=== PATIENT | male | born 1965 | race Caucasian/White ===

== ENCOUNTER 2018-09-01 14:42 | Emergency (ER) | payer OTHER ==
[~2018-09-01] VITALS: Ht 182.9 cm; Wt 106.8 kg
[2018-09-01] MEDS ORDERED: MAPA325T2 PO (14:46)
[2018-09-01] MEDS ORDERED: IBUP40TA PO (14:46)
[2018-09-01 15:54] LABS: INFLUENZA A AMPLIFICATION POSITIVE (NEGATIVE); INFLUENZA B AMPLIFICATION NEGATIVE (NEGATIVE)
[2018-09-01] MEDS ORDERED: NAPR-50 PO (16:57)
[2018-09-01] MEDS ORDERED: MUCI1TAB18 PO (17:00)
[2018-09-01] MEDS ORDERED: FLON1SPR NARES (17:00)
[2018-09-01] MEDS ORDERED: CETI10TA PO (17:00)
[2018-09-01] MEDS ORDERED: NETI1KIT (17:00)
[2018-09-01 17:13] VITALS: BP 149/91
[2018-09-01 18:09] LABS: BLOOD UREA NITROGEN 13 MG/DL (7-18); CALCIUM LEVEL 8.2 MG/DL (8.5-10.1); CARBON DIOXIDE LEVEL 28 MEQ/L (21-32); CHLORIDE LEVEL 107 MEQ/L (98-107); CREATININE FOR GFR 0.77 MG/DL (0.70-1.30); GLOMERULAR FILTRATION RATE > 60.0 (>56); GLUCOSE, FASTING 89 MG/DL (70-100); POTASSIUM SERUM 4.3 MEQ/L (3.5-5.1); SODIUM LEVEL 140 MEQ/L (136-145)
--- NOTE | 2018-09-02 06:37 | REP ---
UNILATERAL RIGHT RIBS, PA CHEST, FIVE VIEWS: HISTORY: Rib pain. The lungs are clear. The heart is normal in size. The pulmonary vasculature is normal in appearance. The bony structure is intact. IMPRESSION: No acute disease. Electronically Signed by Hakeem Ceballos MD 09/02/2018 07:26 A
== END 2018-09-01 17:16 | disposition home or self-care (01) ==
LOC: M ED 14:42
DX: J09.X2 Influenza due to identified novel influenza A virus with other respiratory manifestations (principal); R03.0 Elevated blood-pressure reading, without diagnosis of hypertension; Z79.899 Other long term (current) drug therapy; Z87.891 Personal history of nicotine dependence

== ENCOUNTER → 2020-10-26 | Outpatient (CLI) | payer OTHER ==
[~2020-10-26] MED LIST: CETI10TA PO; FLON1SPR NARES; IBUP1TAB5 PO; MAPA325T8 PO; MUCI1TAB18 PO; NAPR-837 PO; NETI1KIT
--- NOTE | 2020-10-26 10:46 | REP ---
INDICATION: PAIN IN RIGHT KNEE. COMPARISON: None. TECHNIQUE: Multiple sequences obtained in the axial, coronal and sagittal planes. FINDINGS: Menisci: Intact, no tear. Cruciate ligaments: Intact. Collateral ligaments: Intact. Extensor mechanism/patellar retinacula: Intact. Cartilage: There is a 1 cm cartilaginous defect of the medial patellar facet extending close to the osseous surface. 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 There is moderate diffuse chondromalacia of the medial joint compartment. Bone marrow: Diffuse marrow edema is seen in the medial femoral condyle consistent with a bone bruise. There is mild marrow edema medial patellar facet. Joint fluid: There is mild to moderate joint effusion. Popliteal region: No cyst. IMPRESSION: No evidence of internal derangement. Diffuse bone bruise medial femoral condyle. Mild to moderate joint effusion. There is a 1 cm cartilaginous defect of the medial patellar facet extending close to the osseous surface, with mild associated marrow edema. 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 <Electronically signed by Jose Miguel Tyler > 10/26/20 1049
== END ==
LOC: M PLARAD 08:53
PROVIDERS: ATTEND Orthopaedic Surgery
DX: M25.561 Pain in right knee (principal)

== ENCOUNTER 2022-06-08 07:01 | Day surgery (SDC) | payer OTHER ==
[~2022-06-08] VITALS: Ht 180.3 cm; Wt 124.7 kg
[~2022-06-08 07:01] MED LIST changes: +ALBU2.5V10 INH; +AMPICILLIN SOD/SULBACTAM SOD 3 GM in D5W MINI-BAG PLUS 100 ML IV ONE; +CETI-24 PO; +FURO20TA2 PO; +LOSA25TA13 PO; +SPIR-10 PO
[2022-06-08] MEDS ORDERED: BUPIVACAINE LIPOSOME/PF 1.3% 20ML VIAL (13.3MG/ML)(EXPAREL) As Ordered ONE (07:14)
[2022-06-08] MEDS ORDERED: LIDOCAINE 2% W/ EPINEPHRINE 1.7 ML DENTAL INJ As Ordered ONE ×2 (07:14→07:16)
[2022-06-08] MEDS ORDERED: LR 1,000 ML IV SCH ×2 (07:35→10:40)
[2022-06-08] MEDS ORDERED: propofoL 200 MG/20 ML VIAL As Ordered ONE (08:15)
[2022-06-08] MEDS ORDERED: KETOROLAC 60MG 2ML VIAL As Ordered ONE (08:15)
[2022-06-08] MEDS ORDERED: LIDOCAINE 2% 100MG/5ML SDV (FOR ANES.) As Ordered ONE (08:15)
[2022-06-08] MEDS ORDERED: SUGAMMADEX SODIUM 500 MG/5 ML VIAL (BRIDION) As Ordered ONE (08:15)
[2022-06-08] MEDS ORDERED: ONDANSETRON 4MG 2ML VIAL As Ordered ONE (08:15)
[2022-06-08] MEDS ORDERED: ROCURONIUM BROMIDE 50MG/5ML VIAL As Ordered ONE (08:15)
[2022-06-08] MEDS ORDERED: MIDAZOLAM INJ 2MG/2ML VIAL (J2250 PER 1MG) As Ordered ONE (08:16)
[2022-06-08] MEDS ORDERED: fentaNYL 100 MCG/2 ML INJECTION As Ordered ONE (08:17)
[2022-06-08] MEDS ORDERED: METOCLOPRAMIDE INJ 10MG/2ML VIAL As Ordered ONE (09:47)
[2022-06-08] MEDS ORDERED: METOCLOPRAMIDE INJ 10MG/2ML VIAL IV PRN (10:40)
[2022-06-08] MEDS ORDERED: MORPHINE 2 MG/ML 1ML VIAL IV PRN (10:40)
[2022-06-08] MEDS ORDERED: oxyCODONE 5MG TAB PO PRN (10:40)
[2022-06-08] MEDS ORDERED: ONDANSETRON 4MG 2ML VIAL IV PRN (10:40)
[2022-06-08] MEDS ORDERED: fentaNYL 100 MCG/2 ML INJECTION IV PRN (10:40)
[2022-06-08] MEDS ORDERED: KETOROLAC 30 MG/ML 1ML VIAL IV ONE (11:40)
[2022-06-08 12:25] VITALS: BP 140/84
== END 2022-06-08 12:31 | disposition home or self-care (01) ==
LOC: M SDC 07:01
PROVIDERS: ATTEND Dentist
DX: K02.9 Dental caries, unspecified (principal); I10 Essential (primary) hypertension; E78.00 Pure hypercholesterolemia, unspecified; M16.0 Bilateral primary osteoarthritis of hip; M54.2 Cervicalgia; F41.9 Anxiety disorder, unspecified; J44.9 Chronic obstructive pulmonary disease, unspecified; J45.909 Unspecified asthma, uncomplicated; F17.290 Nicotine dependence, other tobacco product, uncomplicated; Z79.899 Other long term (current) drug therapy; Z79.1 Long term (current) use of non-steroidal anti-inflammatories (NSAID)
CPT/HCPCS: 88300; C9290; D7140; D7210; D9223; J0295; J1100; J1885; J2250; J2405; J2765; J3010